=== PATIENT | female | born 1975 | race African-American/Black ===

== ENCOUNTER 2018-11-01 00:47 | Inpatient (IN) | payer OTHER ==
[2018-11-01 01:30] LABS: Mean Corpuscular HGB CONC 32.8 g/dL (32.0-36.0); Mean Corpuscular Hemoglobin 28.6 pg (27.0-31.0); Mean Corpuscular Volume 87.1 fL (78.0-98.0); Mean Platelet Volume 7.4 fL (7.4-10.4); Platelet Count 251 thou/uL (130-400); RBC Distribution Width 12.6 % (11.5-14.5); Red Blood Cell (RBC) Count 4.19 mill/uL (4.20-5.40); White Blood Cell (WBC) Count 17.3 thou/uL (4.8-10.8)
[2018-11-01 01:47] LABS: Band 6 % (5-11); Lymphocytes 5 % (21-51); MDiff Complete? YES; Monocytes 3 % (0-10); Neutrophil 86 % (42-75); Platelet Morphology Comment Appears Adequate; RBC Morphology Normal
[2018-11-01 01:49] LABS: ALT (SGPT) 15 U/L (8-55); AST (SGOT) 16 U/L (5-34); Albumin 3.2 g/dL (3.5-5.0); Alkaline Phosphatase 75 U/L (40-150); Anion Gap 20 mmol/L (10-20); BUN (Urea Nitrogen) 11 mg/dL (7.0-18.7); Bilirubin, Total 0.5 mg/dL (0.2-1.2); Calc. Creatinine Clearance 0 mL/min (70-130); Calcium 9.1 mg/dL (7.8-10.44); Carbon Dioxide 21 mmol/L (22-29); Chloride 97 mmol/L (98-107); Estimated GFR-MDRD 90; Globulin 4.1 g/dL (2.4-3.5); Glucose 402 mg/dL (70-105); Potassium 4.3 mmol/L (3.5-5.1); Protein, Total 7.3 g/dL (6.0-8.3); Sodium 134 mmol/L (136-145)
[2018-11-01] MEDS ORDERED: Guaifenesin DM 100-10/5 ML UDCUP PO PRN (03:11)
[2018-11-01] MEDS ORDERED: Zolpidem Tartrate 5 MG TAB PO PRN (03:11)
[2018-11-01] MEDS ORDERED: Acetaminophen 325 MG TAB PO PRN (03:11)
[2018-11-01] MEDS ORDERED: Ondansetron PF 4 MG/2 ML Vial IVP PRN (03:11)
[2018-11-01] MEDS ORDERED: Dextrose 5% in Water 1,000 ML IV PRN (03:15)
[2018-11-01] MEDS ORDERED: Dextrose 50% Abboject 50 ML SYRINGE SLOW IVP PRN (03:15)
--- NOTE | 2018-11-01 03:22 | PDOC.EVN ---
Event Note - Event Note Event Note: H&P [id number]
[2018-11-01 03:36] LABS: Hemoglobin A1c 10.4 % (4.0-6.0)
--- NOTE | 2018-11-01 03:52 | HP ---
ADMITTING COMPLAINTS: Cough and shortness of breath. HISTORY OF PRESENT ILLNESS: This is a 43-year-old female being admitted to the hospital because of cough, shortness of breath, and fevers. The patient was seen in the ER and found to have a temperature of 102, and was also positive for Streptococcus pharyngitis. The patient also was found to have enlarged tonsils, admitted to the [facility] ER and then recommendation admissions for Internal Medicine for medical management. The patient seen in the ER, states that she is having difficulty swallowing as well as sore throat, noted to have shortness of breath as well. The patient of note, is enormously obese and has enlarged tonsils bilaterally. She says that she has been told in the past and has been trying to lose weight, but is not able to do so. The patient was seen and examined in the ER. No family at bedside. Denies any alleviating or aggravating factors. Denies any other associated symptoms or complaints. Seen and examined again in the ER. All questions were answered. ALLERGIES: NO KNOWN DRUG ALLERGIES. PAST MEDICAL HISTORY: Hypertension, obesity, diabetes mellitus, hyperlipidemia, as well as congestive heart failure. REVIEW OF SYSTEMS: All systems reviewed, pertinent positive in the HPI, otherwise negative. FAMILY HISTORY: Positive for hypertension, diabetes, and congestive heart failure. SOCIAL HISTORY: Nondrinker, nonsmoker. HOME MEDICATIONS: See MAR. PHYSICAL EXAMINATION: VITAL SIGNS: Blood pressure was 198/88, temperature of 101, respiratory rate of 18, O2 saturation of 100% on 4 L nasal cannula. GENERAL: The patient is lying in bed, snoring loudly. No acute discomfort. HEENT: Pupils are equal, round, and reactive to light and accommodation. Oral cavity moist and pink. Grade 3 tonsillar enlargement noted bilaterally. Bilateral painful tender lymphadenopathy also noted in cervical lymph node chain. NECK: Supple, mobile, and nontender thyroid appreciated. CARDIOVASCULAR: Distant heart sounds. Sinus tachycardia. RESPIRATORY: Clear to auscultation bilaterally. Increase in AP diameter. No respiratory distress. Coarse breath sounds at the patient continued to snoring and difficulty breathing given enlarged tonsils. ABDOMEN: Positive bowel sounds. Rotund, nondistended, nontender. EXTREMITIES: Trace pitting edema in bilateral lower extremities. No cyanosis or clubbing noted. NEUROLOGIC: Cranial nerves 2 through 12 intact. No loss of motor or sensory function. LABORATORY DATA: CBC shows white count of 17.3, otherwise normal. Basic metabolic panel shows blood sugars of 400. Brain natriuretic peptide of 127. ASSESSMENT: 1. Strep pharyngitis. 2. Sepsis. 3. Leukocytosis. 4. Congestive heart failure. 5. Hyperglycemia, diabetes mellitus type 2, uncontrolled. 6. Morbid obesity. 7. Pickwickian syndrome/obstructive sleep apnea. PLAN: 1. At this point in time, we will admit the patient to Medicine Service. We will start the patient on Rocephin. 2. We will also provide her with DuoNebs. 3. We will have ENT evaluation performed as well. 4. Aggressive sliding scale as well as 15 units of basal Lantus for her blood sugars. 5. The patient advised to aggressively lose weight and she is at significant morbidity if she does not lose weight. The patient states that she wishes to remain a full code. We will trend enzymes. Obtain an echo. Case and plan discussed with the patient at length. She understood and agreed with this plan. Job ID: [id number]
[2018-11-01 04:04] VITALS: BMI 72.6
[2018-11-01 04:40] LABS: Chloride 100 mmol/L (98-107); Potassium 4.2 mmol/L (3.5-5.1); Sodium 136 mmol/L (136-145)
[2018-11-01 04:47] LABS: Band 20 % (5-11); Lymphocytes 8 % (21-51); MDiff Complete? YES; Mean Corpuscular HGB CONC 32.6 g/dL (32.0-36.0); Mean Corpuscular Hemoglobin 28.3 pg (27.0-31.0); Mean Corpuscular Volume 86.7 fL (78.0-98.0); Mean Platelet Volume 7.8 fL (7.4-10.4); Monocytes 3 % (0-10); Neutrophil 68 % (42-75); Platelet Count 245 thou/uL (130-400); Platelet Morphology Comment Appears Adequate; RBC Distribution Width 12.7 % (11.5-14.5); RBC Morphology Normal; Reactive Lymphocytes 1 % (0-10); Red Blood Cell (RBC) Count 4.25 mill/uL (4.20-5.40); White Blood Cell (WBC) Count 19.8 thou/uL (4.8-10.8)
[2018-11-01 04:49] LABS: Anion Gap 23 mmol/L (10-20); BUN (Urea Nitrogen) 13 mg/dL (7.0-18.7); Calc. Creatinine Clearance 272 mL/min (70-130); Calcium 8.8 mg/dL (7.8-10.44); Carbon Dioxide 16 mmol/L (22-29); Estimated GFR-MDRD 89; Glucose 400 mg/dL (70-105)
[2018-11-01] MEDS: Labetalol HCl 100 MG/20 ML VIAL SLOW IVP PRN ×3 (05:28→22:37)
[2018-11-01] MEDS ORDERED: cefTRIAXone\\ROCEPHIN 1 GM in Sodium Chloride 0.9% 100 ML IVPB SCH (06:00)
[2018-11-01] MEDS: Furosemide 40 MG/4 ML VIAL SLOW IVP SCH ×2 (06:30→15:28)
[2018-11-01] MEDS: HumaLOG 300 UNITS/3 ML VIAL SC PRN ×4 (06:55→22:35)
[2018-11-01] MEDS ORDERED: Enoxaparin Sodium 40 MG/0.4 ML SYRINGE SC SCH (09:00)
[2018-11-01] MEDS: Lisinopril 20 MG TAB PO SCH (09:44)
[2018-11-01] MEDS: Metoprolol Tartrate 100 MG TAB PO SCH ×2 (09:44→20:46)
[2018-11-01] MEDS: Amlodipine 10 MG TAB PO SCH (09:44)
--- NOTE | 2018-11-01 09:56 | RAD ---
PORTABLE CHEST: DATE: 11/01/2018. PROVIDED CLINICAL HISTORY: Cough. FINDINGS: Evaluation is limited by patient body habitus. The lungs are hypoinflated, accentuating pulmonary br onchovascular markings. Heart size is normal for portable technique. Vascular calcification involve s the aortic arch. No pleural fluid or pneumothorax apparent. IMPRESSION: Limited exam. POS: ESTHER
[2018-11-01] MEDS: Dexamethasone 10 MG/ML VIAL SLOW IVP SCH (10:21)
--- NOTE | 2018-11-01 11:32 | PDOC.PN ---
- Subjective Encounter Start Date: 11/01/18 Encounter Start Time: 11:30 Subjective: feels SOb and c/o difficulty swolowing saliva -: reports h/o CHF and A-fib ,sleep apnea - Objective Resuscitation Status - Order Detail: 11/01/18 03:11 Resuscitation Status Routine Resuscitation Status: FULL: Full Resuscitation Discussed with: patient MARK Reviewed: Yes Vital Signs & Weight: Vital Signs (12 hours) Temp Pulse Resp BP BP Pulse Ox 11/01/18 11:00 98.8 F 94 18 145/84 H 96 11/01/18 09:44 99 172/81 H 11/01/18 08:00 95 11/01/18 07:58 98.5 F 99 24 H 144/67 H 95 11/01/18 05:29 156/72 H 11/01/18 05:28 94 172/81 H 11/01/18 05:25 94 24 H 172/81 H 11/01/18 04:15 98 11/01/18 04:01 98.4 F 100 24 H 176/81 H 98 11/01/18 03:11 98 Weight Weight 436 lb 8 oz I&O: 10/31/18 11/01/18 11/02/18 06:59 06:59 06:59 Intake Total 614 Balance 614 Result Diagrams: 11/01/18 04:10 11/01/18 04:10 Additional Labs: Accuchecks 11/01/18 05:05 POC Glucose 377 H Phys Exam - Physical Examination uncomfortbale and breathing fast HEENT: PERRLA, moist MMs, sclera anicteric, oral pharynx no lesions Neck: no nodes, no JVD, supple, full ROM Respiratory: no wheezing, no rales, no rhonchi, clear to auscultation bilateral Cardiovascular: RRR, no significant murmur, no rub tachycardia Gastrointestinal: soft, non-tender, no distention, positive bowel sounds Musculoskeletal: no edema, pulses present Neurological: non-focal, normal sensation, moves all 4 limbs Psychiatric: normal affect, A&O x 3 Skin: no rash Dx/Plan (1) Sepsis Code(s): A41.9 - SEPSIS, UNSPECIFIED ORGANISM Status: Acute (2) Acute streptococcal tonsillitis Code(s): J03.00 - ACUTE STREPTOCOCCAL TONSILLITIS, UNSPECIFIED Status: Acute (3) AUSTIN (obstructive sleep apnea) Code(s): G47.33 - OBSTRUCTIVE SLEEP APNEA (ADULT) (PEDIATRIC) Status: Chronic (4) Morbid obesity with BMI of 70 and over, adult Code(s): E66.01 - MORBID (SEVERE) OBESITY DUE TO EXCESS CALORIES; Z68.45 - BODY MASS INDEX (BMI) 70 OR GREATER, ADULT Status: Chronic (5) Paroxysmal atrial fibrillation Code(s): I48.0 - PAROXYSMAL ATRIAL FIBRILLATION Status: Chronic Comment: on OAC (6) CHF (congestive heart failure) Code(s): I50.9 - HEART FAILURE, UNSPECIFIED Status: Chronic Qualifiers: Heart failure chronicity: unspecified (7) HTN (hypertension) Code(s): I10 - ESSENTIAL (PRIMARY) HYPERTENSION Status: Chronic (8) Uncontrolled diabetes mellitus Code(s): E11.65 - TYPE 2 DIABETES MELLITUS WITH HYPERGLYCEMIA Status: Chronic Qualifiers: Diabetes mellitus type: type 2 - Plan continue antibiotics, PT/OT, respiratory therapy, incentive spirometry, out of bed/ambulate, DVT proph w/SCDs Pt noted to have tachycardia and tachypnea on exam & looks uncomfortable -: w severe co morbidities and sepsis,high risk of decompensation.will move to -: tele floor.broaden ABx coverage. blood Cx pending -: ENT recs pending,but no abscess to drain per CT-reviewed from [place] -: hold OAC for now pending ENT eval.NPO for now. * .restart select home meds as below. * lasix IV BID .strict I/Os.ECHO ordered * am labs * increase dose of rocephin Review of Systems - Review of Systems Constitutional: weakness, malaise Respiratory: Shortness of Breath Cardiovascular: negative: chest pain, palpitations, orthopnea, paroxysmal nocturnal dyspnea, edema, light headedness, other Gastrointestinal: Nausea. negative: Vomiting, Abdominal Pain, Diarrhea, Constipation, Melena, Hematochezia, Other Genitourinary: negative: Dysuria, Frequency, Incontinence, Hematuria, Retention , Other Musculoskeletal: negative: Neck Pain, Shoulder Pain, Arm Pain, Back Pain, Hand Pain, Leg Pain, Foot Pain, Other Neurological: negative: Weakness, Numbness, Incoordination, Change in Speech, Confusion, Seizures, Other - Medications/Allergies Allergies/Adverse Reactions: Allergies Allergy/AdvReac Type Severity Reaction Status Date / Time aspirin Allergy Hives Verified 11/01/18 04:41 Iodinated Contrast- Oral and Allergy Hives Verified 11/01/18 04:41 IV Dye latex Allergy Verified 11/01/18 04:41 Penicillins Allergy Hives Verified 11/01/18 04:41 Sulfa (Sulfonamide Allergy Verified 11/01/18 07:34 Antibiotics) Medications: Current Medications Acetaminophen (Tylenol) 650 mg PO Q4H PRN PRN Reason: Headache/Fever/Mild Pain (1-3) Albuterol/Ipratropium (Duoneb) 3 ml NEB [id number] PRN PRN Reason: SOB &/or Wheezing Amlodipine Besylate (Norvasc) 10 mg PO DAILY [facility] Last Admin: 11/01/18 09:44 Dose: 10 mg Dexamethasone (Decadron) 10 mg SLOW IVP 0900,1000 [facility] Stop: 11/02/18 09:01 Last Admin: 11/01/18 10:21 Dose: 10 mg Dextrose/Water (Dextrose 50%) 25 gm SLOW IVP PRN PRN PRN Reason: Hypoglycemia Enoxaparin Sodium (Lovenox) 40 mg SC 0900 [facility] Last Admin: 11/01/18 09:45 Dose: 40 mg Furosemide (Lasix) 40 mg SLOW IVP 0600,1400 [facility] Last Admin: 11/01/18 06:30 Dose: 40 mg Glucagon (Glucagon) 1 mg IM PRN PRN PRN Reason: Hypoglycemia Guaifenesin/Dextromethorphan (Robitussin Dm) 15 ml PO Q4H PRN PRN Reason: Cough Ceftriaxone Sodium 1 gm/ (Sodium Chloride) 100 mls @ 200 mls/hr IVPB Q24HR [facility] Last Admin: 11/01/18 05:18 Dose: 100 mls Dextrose/Water (D5w) 1,000 mls @ 0 mls/hr IV .Q0M PRN PRN Reason: Hypoglycemia Insulin Glargine 15 units/ (Miscellaneous Medication) 0.15 mls @ 0 mls/hr SC HS [facility] Insulin Human Lispro (Humalog) 0 units SC .BEDTIME SLIDING SC PRN PRN Reason: Bedtime Correctional Scale Insulin Human Lispro (Humalog) 0 units SC .AGGRESSIVE SLIDING PRN PRN Reason: Aggressive Correctional Scale Last Admin: 11/01/18 06:55 Dose: 13 unit Labetalol HCl (Normodyne) 20 mg SLOW IVP Q4H PRN PRN Reason: FOR SBP > 170mmHg Last Admin: 11/01/18 05:28 Dose: 20 mg Lisinopril (Zestril) 40 mg PO DAILY [facility] Last Admin: 11/01/18 09:44 Dose: 40 mg Metoprolol Tartrate (Lopressor) 100 mg PO BID [facility] Last Admin: 11/01/18 09:44 Dose: 100 mg Ondansetron HCl (Zofran) 4 mg IVP Q6H PRN PRN Reason: Nausea/Vomiting Pantoprazole Sodium (Protonix) 40 mg PO BID [facility] Last Admin: 11/01/18 09:45 Dose: 40 mg Sodium Chloride (Flush - Normal Saline) 10 ml IVF Q12HR PRN PRN Reason: Saline Flush Last Admin: 11/01/18 05:17 Dose: 10 ml Zolpidem Tartrate (Ambien) 5 mg PO HSPRN PRN PRN Reason: Insomnia
[2018-11-01 11:56] LABS: Troponin I Less than 0.010 ng/mL (< 0.028)
[2018-11-01] MEDS: cefTRIAXone\\ROCEPHIN 2 GM in Sodium Chloride 0.9% 100 ML IVPB SCH (18:00)
[2018-11-01 18:20] LABS: Troponin I Less than 0.010 ng/mL (< 0.028)
[2018-11-01] MEDS: Insulin Glargine 20 UNITS in Pre-Filled Syringe 1 EACH SC SCH (20:46)
[2018-11-01] MEDS ORDERED: Insulin Glargine 15 UNITS in Pre-Filled Syringe 1 EACH SC SCH (21:00)
[2018-11-02] MEDS ORDERED: HumaLOG 300 UNITS/3 ML VIAL SC SCH (04:00)
[2018-11-02] MEDS: HumaLOG 300 UNITS/3 ML VIAL SC PRN ×2 (06:23→20:37)
[2018-11-02 06:42] LABS: #Lymphocytes 1.4 thou/uL (1.20-3.40); #Neutrophils 13.8 thou/uL (1.40-6.50); %Eosinophils 0.1 % (0.0-10.0); %Lymphocytes 8.7 % (21.0-51.0); %Monocytes 6.3 % (0.0-10.0); %Neutrophils 84.8 % (42.0-75.0); Hemoglobin 11.4 g/dL (12.0-16.0); Mean Corpuscular HGB CONC 30.7 g/dL (32.0-36.0); Mean Corpuscular Hemoglobin 27.4 pg (27.0-31.0); Mean Corpuscular Volume 89.3 fL (78.0-98.0); Platelet Count 256 thou/uL (130-400); RBC Distribution Width 12.7 % (11.5-14.5); Red Blood Cell (RBC) Count 4.15 mill/uL (4.20-5.40); White Blood Cell (WBC) Count 16.2 thou/uL (4.8-10.8)
[2018-11-02 06:57] LABS: Anion Gap 15 mmol/L (10-20); BUN (Urea Nitrogen) 17 mg/dL (7.0-18.7); Calc. Creatinine Clearance 254 mL/min (70-130); Calcium 8.8 mg/dL (7.8-10.44); Carbon Dioxide 25 mmol/L (22-29); Chloride 100 mmol/L (98-107); Estimated GFR-MDRD 82; Glucose 424 mg/dL (70-105); Sodium 136 mmol/L (136-145)
[2018-11-02] MEDS ORDERED: Furosemide 100 MG/10 ML VIAL SLOW IVP SCH (09:00)
[2018-11-02] MEDS ORDERED: Furosemide 20 MG TAB PO SCH ×2 (09:00)
[2018-11-02] MEDS ORDERED: hydrALAZINE 20 MG/ML VIAL SLOW IVP PRN (09:01)
[2018-11-02] MEDS: Amlodipine 10 MG TAB PO SCH (09:52)
[2018-11-02] MEDS: Furosemide 40 MG TAB PO SCH (09:52)
[2018-11-02] MEDS: Apixaban 5 MG TAB PO SCH ×2 (09:52→20:39)
[2018-11-02] MEDS: Gabapentin 300 MG CAP PO SCH ×2 (09:53→20:40)
[2018-11-02] MEDS: HYDROcodone/Acetaminophen 7.5/325 mg Tablet PO SCH ×2 (09:53→20:39)
[2018-11-02] MEDS: Metoprolol Tartrate 100 MG TAB PO SCH ×2 (09:54→20:39)
[2018-11-02] MEDS: Lisinopril 20 MG TAB PO SCH (09:54)
[2018-11-02] MEDS: Dexamethasone 10 MG/ML VIAL SLOW IVP SCH (09:55)
[2018-11-02] MEDS: HumaLOG 300 UNITS/3 ML VIAL SC SCH ×2 (11:20→16:25)
--- NOTE | 2018-11-02 13:52 | PDOC.PN ---
- Subjective Encounter Start Date: 11/02/18 Encounter Start Time: 13:51 Subjective: feels better but could not tolerate CPAP last night -: able to swollow better and breathing easier - Objective Resuscitation Status - Order Detail: 11/01/18 03:11 Resuscitation Status Routine Resuscitation Status: FULL: Full Resuscitation Discussed with: patient MARK Reviewed: Yes Vital Signs & Weight: Vital Signs (12 hours) Temp Pulse Resp BP Pulse Ox 11/02/18 11:15 97.8 F 61 18 171/91 H 96 11/02/18 07:45 97.8 F 84 20 158/80 H 98 11/02/18 04:20 97.4 F L 80 16 178/98 H 97 Weight Weight 436 lb 5 oz I&O: 11/01/18 11/02/18 11/03/18 06:59 06:59 06:59 Intake Total 1764 Output Total 3200 Balance -1436 Result Diagrams: 11/02/18 06:16 11/02/18 06:16 Additional Labs: Accuchecks 11/02/18 11/02/18 11/02/18 10:28 05:46 02:46 POC Glucose 322 H 391 H 432 H 11/01/18 11/01/18 11/01/18 22:36 20:36 19:02 POC Glucose 435 H 457 H 487 H 11/01/18 17:03 POC Glucose 459 H Microbiology 11/01/18 01:15 Venous blood - Left Arm Blood Culture - Preliminary Specimen has been received and culture in progress. No Growth to date. Laboratory Tests 11/01/18 11/01/18 11/02/18 01:15 04:10 06:16 WBC 17.3 H 19.8 H 16.2 H Phys Exam - Physical Examination Constitutional: NAD HEENT: PERRLA, moist MMs, sclera anicteric, oral pharynx no lesions tonsila could not be seen due to positioning Neck: no nodes, no JVD, supple, full ROM Respiratory: no wheezing, no rales, no rhonchi, clear to auscultation bilateral Cardiovascular: RRR, no significant murmur, no rub Gastrointestinal: soft, non-tender, no distention, positive bowel sounds Musculoskeletal: no edema, pulses present Neurological: non-focal, normal sensation, moves all 4 limbs Psychiatric: normal affect, A&O x 3 Skin: no rash Dx/Plan (1) Sepsis Code(s): A41.9 - SEPSIS, UNSPECIFIED ORGANISM Status: Acute (2) Acute streptococcal tonsillitis Code(s): J03.00 - ACUTE STREPTOCOCCAL TONSILLITIS, UNSPECIFIED Status: Acute (3) Uncontrolled diabetes mellitus Code(s): E11.65 - TYPE 2 DIABETES MELLITUS WITH HYPERGLYCEMIA Status: Chronic Qualifiers: Diabetes mellitus type: type 2 (4) AUSTIN (obstructive sleep apnea) Code(s): G47.33 - OBSTRUCTIVE SLEEP APNEA (ADULT) (PEDIATRIC) Status: Chronic (5) Morbid obesity with BMI of 70 and over, adult Code(s): E66.01 - MORBID (SEVERE) OBESITY DUE TO EXCESS CALORIES; Z68.45 - BODY MASS INDEX (BMI) 70 OR GREATER, ADULT Status: Chronic (6) Paroxysmal atrial fibrillation Code(s): I48.0 - PAROXYSMAL ATRIAL FIBRILLATION Status: Chronic Comment: on OAC (7) CHF (congestive heart failure) Code(s): I50.9 - HEART FAILURE, UNSPECIFIED Status: Chronic Qualifiers: Heart failure chronicity: unspecified (8) HTN (hypertension) Code(s): I10 - ESSENTIAL (PRIMARY) HYPERTENSION Status: Chronic - Plan continue antibiotics, out of bed/ambulate, DVT proph w/SCDs Cont ABx. clinically better. -: retsart home meds as below. on eliquis for a-fib.restart as no Sx per ENT -: reduce lasix dose.encouraged pt to discuss w her laryngologist in [facility] -: ECHO WNL & high dose lasix might cause KISHA.pt understood -: May transfer to medical if BP better controlled. restart home insulin * . Review of Systems - Review of Systems Constitutional: weakness, malaise Respiratory: SOB with Excertion. negative: Cough, Dry, Shortness of Breath, Hemoptysis, Pleuritic Pain, Sputum, Wheezing Cardiovascular: edema. negative: chest pain, palpitations, orthopnea, paroxysmal nocturnal dyspnea, light headedness, other Gastrointestinal: negative: Nausea, Vomiting, Abdominal Pain, Diarrhea, Constipation, Melena, Hematochezia, Other Genitourinary: negative: Dysuria, Frequency, Incontinence, Hematuria, Retention , Other Musculoskeletal: negative: Neck Pain, Shoulder Pain, Arm Pain, Back Pain, Hand Pain, Leg Pain, Foot Pain, Other Neurological: negative: Weakness, Numbness, Incoordination, Change in Speech, Confusion, Seizures, Other - Medications/Allergies Allergies/Adverse Reactions: Allergies Allergy/AdvReac Type Severity Reaction Status Date / Time aspirin Allergy Hives Verified 11/01/18 04:41 Iodinated Contrast- Oral and Allergy Hives Verified 11/01/18 04:41 IV Dye latex Allergy Verified 11/01/18 04:41 Penicillins Allergy Hives Verified 11/01/18 04:41 Sulfa (Sulfonamide Allergy Verified 11/01/18 07:34 Antibiotics) Medications: Current Medications Acetaminophen (Tylenol) 650 mg PO Q4H PRN PRN Reason: Headache/Fever/Mild Pain (1-3) Last Admin: 11/01/18 12:51 Dose: 650 mg Hydrocodone Bitart/Acetaminophen (Padroni 7.5/325) 1 tab PO BID [facility] Last Admin: 11/02/18 09:53 Dose: 1 tab Albuterol/Ipratropium (Duoneb) 3 ml NEB [id number] PRN PRN Reason: SOB &/or Wheezing Amlodipine Besylate (Norvasc) 10 mg PO DAILY [facility] Last Admin: 11/02/18 09:52 Dose: 10 mg Apixaban (Eliquis) 5 mg PO BID [facility] Last Admin: 11/02/18 09:52 Dose: 5 mg Clonidine (Catapres) 0.1 mg PO Q4H PRN PRN Reason: sbp>160 Dextrose/Water (Dextrose 50%) 25 gm SLOW IVP PRN PRN PRN Reason: Hypoglycemia Furosemide (Lasix) 60 mg PO DAILY [facility] Last Admin: 11/02/18 09:52 Dose: 60 mg Gabapentin (Neurontin) 300 mg PO BID [facility] Last Admin: 11/02/18 09:53 Dose: 300 mg Glucagon (Glucagon) 1 mg IM PRN PRN PRN Reason: Hypoglycemia Guaifenesin/Dextromethorphan (Robitussin Dm) 15 ml PO Q4H PRN PRN Reason: Cough Hydralazine HCl (Apresoline) 10 mg SLOW IVP Q4H PRN PRN Reason: SBP>170 Dextrose/Water (D5w) 1,000 mls @ 0 mls/hr IV .Q0M PRN PRN Reason: Hypoglycemia Ceftriaxone Sodium 2 gm/ (Sodium Chloride) 100 mls @ 200 mls/hr IVPB Q24HR [facility] Last Admin: 11/01/18 18:00 Dose: 100 mls Insulin Glargine 20 units/ (Miscellaneous Medication) 0.2 mls @ 0 mls/hr SC HS [facility] Last Admin: 11/01/18 20:46 Dose: 0.2 mls Insulin Human Lispro (Humalog) 0 units SC .BEDTIME SLIDING SC PRN PRN Reason: Bedtime Correctional Scale Last Admin: 11/01/18 22:35 Dose: 5 units Insulin Human Lispro (Humalog) 0 units SC .AGGRESSIVE SLIDING PRN PRN Reason: Aggressive Correctional Scale Last Admin: 11/02/18 06:23 Dose: 13 unit Insulin Human Lispro (Humalog) 20 units SC TID-WM [facility] Last Admin: 11/02/18 11:20 Dose: 20 unit Labetalol HCl (Normodyne) 20 mg SLOW IVP Q4H PRN PRN Reason: FOR SBP > 170mmHg Last Admin: 11/01/18 22:37 Dose: 20 mg Lisinopril (Zestril) 40 mg PO DAILY [facility] Last Admin: 11/02/18 09:54 Dose: 40 mg Metoprolol Tartrate (Lopressor) 100 mg PO BID [facility] Last Admin: 11/02/18 09:54 Dose: 100 mg Ondansetron HCl (Zofran) 4 mg IVP Q6H PRN PRN Reason: Nausea/Vomiting Pantoprazole Sodium (Protonix) 40 mg PO BID [facility] Last Admin: 11/02/18 09:54 Dose: 40 mg Sodium Chloride (Flush - Normal Saline) 10 ml IVF Q12HR PRN PRN Reason: Saline Flush Last Admin: 11/01/18 05:17 Dose: 10 ml Zolpidem Tartrate (Ambien) 5 mg PO HSPRN PRN PRN Reason: Insomnia
[2018-11-02] MEDS: cefTRIAXone\\ROCEPHIN 2 GM in Sodium Chloride 0.9% 100 ML IVPB SCH (17:19)
[2018-11-02 17:48] LABS: Hemoglobin 12.3 g/dL (12.0-16.0); Platelet Count 267 thou/uL (130-400)
[2018-11-02] MEDS ORDERED: Clopidogrel Bisulfate 75 MG TAB ONE (20:34)
[2018-11-02] MEDS: Insulin Glargine 20 UNITS in Pre-Filled Syringe 1 EACH SC SCH (20:41)
--- NOTE | 2018-11-02 21:18 | CON ---
DATE OF CONSULTATION: SUBJECTIVE: Ms. Aquino was admitted over the weekend for a case of severe strep throat. This had been occurring over the last 48 hours prior to going to the hospital. She reported extremely high fever well over 103 and not been able to eat or drink anything for the last 48 hours. She was admitted, Dr. Noriega was consulted by phone. She has been on OV Rocephin and steroids through the weekend. Today, she reports that she is feeling better overall. She is able to swallow without any difficulty. She is eating and drinking on her own now, still feels a little bit weak, but is able to getup and move around on her own. The patient states that tonsils have been a problem throughout her life, was going to get them removed when she was younger, but did not. Has several cases of infectious tonsillitis per year and also has severe snoring. OBJECTIVE: GENERAL: The patient is well-developed and well-nourished. She is morbidly obese. HEENT: Her tonsils today are 4+ and cryptic. One small pustule on the left tonsil is noted though erythema is very minimal at this time. She is able to swallow without difficulty. She is breathing without difficulty. Lymph nodes mildly swollen bilaterally. ASSESSMENT: 1. Strep throat. 2. Enlarged tonsils. 3. Chronic tonsillitis. PLAN: 1. The patient si to continue on Rocephin and steroids in hospital and recommend discharging with oral clindamycin 300 mg t.i.d. for 10 days. 2. Follow up with Dr. Noriega at [facility] to discuss possibility of tonsillectomy. Job ID: [id number]
[2018-11-02] MEDS ORDERED: Bisacodyl 10 MG SUPP PR PRN (23:39)
[2018-11-03] MEDS: HumaLOG 300 UNITS/3 ML VIAL SC PRN ×2 (06:05→21:11)
[2018-11-03 06:40] LABS: #Lymphocytes 1.9 thou/uL (1.20-3.40); #Monocytes 0.8 thou/uL (0.11-0.59); #Neutrophils 9.3 thou/uL (1.40-6.50); %Basophils 0.1 % (0.0-1.0); %Eosinophils 0.2 % (0.0-10.0); %Lymphocytes 15.7 % (21.0-51.0); %Monocytes 6.6 % (0.0-10.0); %Neutrophils 77.5 % (42.0-75.0); Hemoglobin 11.6 g/dL (12.0-16.0); Mean Corpuscular HGB CONC 32.1 g/dL (32.0-36.0); Mean Corpuscular Hemoglobin 28.3 pg (27.0-31.0); Mean Corpuscular Volume 88.2 fL (78.0-98.0); Platelet Count 273 thou/uL (130-400); RBC Distribution Width 12.6 % (11.5-14.5)
[2018-11-03] MEDS: cloNIDine 0.1 MG TAB PO PRN (06:48)
[2018-11-03 06:59] LABS: Anion Gap 14 mmol/L (10-20); BUN (Urea Nitrogen) 21 mg/dL (7.0-18.7); Calc. Creatinine Clearance 272 mL/min (70-130); Calcium 8.7 mg/dL (7.8-10.44); Carbon Dioxide 26 mmol/L (22-29); Chloride 98 mmol/L (98-107); Estimated GFR-MDRD 89; Glucose 393 mg/dL (70-105); Potassium 4.1 mmol/L (3.5-5.1); Sodium 134 mmol/L (136-145)
[2018-11-03] MEDS: HumaLOG 300 UNITS/3 ML VIAL SC SCH ×3 (08:23→17:52)
[2018-11-03] MEDS: Senokot S 8.6-50 MG TAB PO SCH ×2 (08:24→21:04)
[2018-11-03] MEDS: HYDROcodone/Acetaminophen 7.5/325 mg Tablet PO SCH ×2 (08:24→21:05)
[2018-11-03] MEDS: Apixaban 5 MG TAB PO SCH ×2 (08:24→21:06)
[2018-11-03] MEDS: Furosemide 40 MG TAB PO SCH (08:24)
[2018-11-03] MEDS: Metoprolol Tartrate 100 MG TAB PO SCH ×2 (08:25→21:07)
[2018-11-03] MEDS: Lisinopril 20 MG TAB PO SCH (08:25)
[2018-11-03] MEDS: Amlodipine 10 MG TAB PO SCH (08:25)
[2018-11-03] MEDS: Gabapentin 300 MG CAP PO SCH ×2 (08:25→21:07)
--- NOTE | 2018-11-03 14:37 | PQF ---
CLINICAL DOCUMENTATION IMPROVEMENT CLARIFICATION FORM: ICD-10 Updated PLEASE DO AN ADDENDUM TO THE PROGRESS NOTE WITH ANY DOCUMENTATION UPDATES OR ADDITIONS AND CARRY THROUGH TO DC SUMMARY. THANK YOU. DATE: 11/03/2018 ATTN: Dr. Correa Please exercise your independent, professional judgment in responding to the clarification form. Clinical indicators are provided on the bottom of this form for your review Please check appropriate box(s): HEART FAILURE: A. TYPE: [ ] Systolic / HFrEF [ ] Diastolic / HFpEF [ ] Combined Systolic / Diastolic [ x ] Other diagnosis _HTN, morbid obesity [ ] Unable to determine In addition, please specify: Present on Admission (POA): [ ] Yes [ x ] No [ ] Unable to determine For continuity of documentation, please document condition throughout progress notes and discharge summary. Thank You. CLINICAL INDICATORS - SIGNS / SYMPTOMS / LABS PN 11/01: CHRONIC CHF. PN 11/02: ECHO WNL RISKS: H&P 11/01: Hx HTN, obesity, DM, and CHF. Pickwickian syndrome/ AUSTIN. TREATMENT: PN 11/01: Tele floor. - lasix IV BID strict I/Os. Echo ordered Order 11/02: Lasix 60 mg po daily. Thank you, Catina (This form is maintained as a part of the permanent medical record) 2014 [employer] All Rights Reserved Catina Brice RN, [email or web address] [email or web address] Office: [phone] [facility]
[2018-11-03] MEDS: cefTRIAXone\\ROCEPHIN 2 GM in Sodium Chloride 0.9% 100 ML IVPB SCH (17:52)
--- NOTE | 2018-11-03 19:41 | PDOC.PN ---
- Subjective Encounter Start Date: 11/03/18 Encounter Start Time: 18:30 Subjective: f/u for tonsillitis/pharyngitis and sepsis on Rocephin currently. Feeling -: better with less dysphagia. No fever. - Objective Resuscitation Status - Order Detail: 11/01/18 03:11 Resuscitation Status Routine Resuscitation Status: FULL: Full Resuscitation Discussed with: patient MAR Reviewed: Yes Vital Signs & Weight: Vital Signs (12 hours) Temp Pulse Resp BP Pulse Ox 11/03/18 15:20 97.8 F 78 20 138/79 97 11/03/18 11:30 97.4 F L 64 22 H 159/93 H 97 Weight Weight 436 lb 5 oz I&O: 11/02/18 11/03/18 11/04/18 06:59 06:59 06:59 Intake Total 1764 1200 720 Output Total 3200 650 650 Balance -1436 550 70 Result Diagrams: 11/03/18 05:42 11/03/18 05:42 Additional Labs: Accuchecks 11/03/18 11/03/18 11/03/18 17:47 10:49 08:13 POC Glucose 235 H 299 H 350 H 11/03/18 11/02/18 05:49 20:32 POC Glucose 366 H 392 H Microbiology 11/01/18 01:15 Venous blood - Left Arm Blood Culture - Preliminary Gram Positive Cocci Laboratory Tests 11/01/18 11/01/18 11/02/18 01:15 04:10 06:16 WBC 17.3 H 19.8 H 16.2 H Neutrophils % 84.8 H Band Neuts % (Manual) 20 H 11/03/18 05:42 WBC Neutrophils % 77.5 H Band Neuts % (Manual) Radiology Reviewed by me: Yes (Echo - normal) Phys Exam - Physical Examination Constitutional: NAD tonsillar edema, pink, no plaques HEENT: PERRLA, sclera anicteric Neck: no nodes, no JVD, supple, full ROM Respiratory: no wheezing, no rales, no rhonchi, clear to auscultation bilateral S1, S2 Cardiovascular: RRR, no significant murmur, no rub, gallop obese Gastrointestinal: soft, non-tender, no distention, positive bowel sounds Musculoskeletal: no edema, pulses present Neurological: normal sensation, moves all 4 limbs Psychiatric: A&O x 3 Skin: normal turgor, cap refill <2 seconds Dx/Plan (1) Acute streptococcal tonsillitis Code(s): J03.00 - ACUTE STREPTOCOCCAL TONSILLITIS, UNSPECIFIED Status: Acute Comment: Continue Rocephin another 24h then convert to Clindamycin for outpt (2) Sepsis Code(s): A41.9 - SEPSIS, UNSPECIFIED ORGANISM Status: Acute Comment: Secondary to #1, resolving with tx (3) HTN (hypertension) Code(s): I10 - ESSENTIAL (PRIMARY) HYPERTENSION Status: Chronic Qualifiers: Hypertension type: essential hypertension Qualified Code(s): I10 - Essential (primary) hypertension Comment: Resume home BP regimen, serial monitoring (4) AUSTIN (obstructive sleep apnea) Code(s): G47.33 - OBSTRUCTIVE SLEEP APNEA (ADULT) (PEDIATRIC) Status: Chronic Comment: May need outpt sleep study - Plan continue antibiotics, social work job titles, respiratory therapy, out of bed/ambulate , DVT proph w/SCDs Stable currently -: Continue Rocephin another 24h -: Convert to Clindamycin in am -: Resume home BP regimen -: Home in am 11/04/18 * .
[2018-11-03] MEDS: Insulin Glargine 20 UNITS in Pre-Filled Syringe 1 EACH SC SCH (21:12)
[2018-11-03 21:38] LABS: Pregnancy Test - Urine (BHCG) Negative (Negative); Pregu Control Background? CLEAR/WHITE (CLR/WHITE); Pregu Control Bar Appear? YES (CONTROL BAR); Specific Gravity 1.019 (1.002-1.036)
[2018-11-04] MEDS: cloNIDine 0.1 MG TAB PO PRN (05:57)
[2018-11-04] MEDS: Amlodipine 10 MG TAB PO SCH (08:26)
[2018-11-04] MEDS: Furosemide 40 MG TAB PO SCH (08:26)
[2018-11-04] MEDS: Apixaban 5 MG TAB PO SCH (08:26)
[2018-11-04] MEDS: Gabapentin 300 MG CAP PO SCH (08:27)
[2018-11-04] MEDS: HYDROcodone/Acetaminophen 7.5/325 mg Tablet PO SCH (08:27)
[2018-11-04] MEDS: Lisinopril 20 MG TAB PO SCH (08:28)
[2018-11-04] MEDS: Metoprolol Tartrate 100 MG TAB PO SCH (08:28)
[2018-11-04] MEDS: Senokot S 8.6-50 MG TAB PO SCH (08:28)
[2018-11-04] MEDS: HumaLOG 300 UNITS/3 ML VIAL SC SCH ×2 (09:32→12:20)
--- NOTE | 2018-11-04 10:40 | DIS ---
DATE OF ADMISSION: 11/01/2018 DATE OF DISCHARGE: 11/04/2018 DISCHARGE DIAGNOSES: 1. Acute streptococcal tonsillitis, improved. 2. Sepsis secondary to number #1, resolved. 3. Hypertension, stable. 4. Obstructive sleep apnea, chronic. 5. Diabetes mellitus type 2, insulin requiring. 6. Morbid obesity. CONSULTATIONS: ENT Service. PERTINENT LAB AND X-RAY FINDINGS: Hemoglobin A1c 10.4. BNP ranged between 35 to 127. Troponin I negative x3. CBC showed a white blood cell count ranging between 12.0 to 19.8. Blood culture x1 dated 11/01/2018, showed coagulase-negative Staphylococcus aureus likely skin contaminant. Portable chest x-ray dated 11/01/2018, showed limited exam without acute infiltrate. 2D transthoracic echocardiogram dated 11/01/2018, showed ejection fraction of 60% to 65%. Trace mitral valve regurgitation. HOSPITAL COURSE: The patient was initially admitted after presenting with cough and shortness of breath with evidence of acute tonsillitis. The patient underwent evaluation and treatment for streptococcal tonsillitis/pharyngitis, placed on IV Rocephin and given Solu-Medrol. The patient was evaluated by the ENT Service with recommendations to continue IV antibiotic therapy and general supportive care. The patient was initially placed on clear liquids, advancing to soft mechanical diet without difficulty. The patient was given general supportive management and was clinically stable throughout the hospital course. I have examined the patient at the time of discharge and discussed followup instructions. The patient verbalized understanding and agreement, ready for discharge on 11/04/2018. DISCHARGE MEDICATIONS: 1. Clindamycin 300 mg p.o. t.i.d. x10 days. 2. Norvasc 10 mg p.o. daily. 3. Eliquis 5 mg p.o. b.i.d. 4. Nexium 40 mg p.o. b.i.d. 5. Lasix 120 mg p.o. daily. 6. Gabapentin 300 mg p.o. b.i.d. 7. Humalog 20 units subcutaneously t.i.d. with meals. 8. Tolar 7.5/325 mg 1 tablet p.o. b.i.d. p.r.n. 9. Zestril 40 mg p.o. daily. 10. Metoprolol tartrate 100 mg p.o. b.i.d. FOLLOWUP: The patient should follow up with her primary care provider in the [place] within 7 to 10 days. The patient may follow up with Dr. Noriega at the [facility] and to call his office for appointment time and date. CONDITION ON DISCHARGE: Stable. ACTIVITY: Ad-faye. DIET: ADA and heart healthy. CODE STATUS: Full. DISPOSITION: To home, 11/04/2018. Job ID: [id number]
[2018-11-04 12:18] VITALS: TEMP 98.1
[2018-11-04 13:28] VITALS: BP 108/63
== END 2018-11-04 14:25 | disposition home or self-care (01) | DRG 872 ==
LOC: ERS 00:47 → ONC 03:34 → 2NO 10:32
PROVIDERS: ADMIT Internal Medicine; ATTEND Internal Medicine
PROC: 5A09357 Assistance with Respiratory Ventilation, Less than 24 Consecutive Hours, Continuous Positive Airway Pressure (ICD-10-PCS; principal; 2018-11-01)
DX: A41.9 Sepsis, unspecified organism (principal); Z68.45 Body mass index [BMI] 70 or greater, adult; E66.01 Morbid (severe) obesity due to excess calories; E78.5 Hyperlipidemia, unspecified; E11.65 Type 2 diabetes mellitus with hyperglycemia; J03.00 Acute streptococcal tonsillitis, unspecified; G47.33 Obstructive sleep apnea (adult) (pediatric); I48.0 Paroxysmal atrial fibrillation; I11.0 Hypertensive heart disease with heart failure; I50.9 Heart failure, unspecified
CPT/HCPCS: 36415; 36416; 71045; 80048; 80053; 81025; 82947; 83036; 83880; 84484; 85025; 87040; 87149; 93306; 94660; 96361; 96374; J0696; J1100; J1650; J1825; J1940; J3490; J7050